=== PATIENT | female | born 1985 | race Caucasian/White ===

== ENCOUNTER 2018-06-01 | Emergency (ER) | payer OTHER ==
[~2018-06-01] VITALS: Ht 170.2 cm; Wt 102.2 kg
[~2018-06-01] MED LIST: AUGMENTIN875 MG PO; BCP; BUSPAR10 MG PO; CIPRO500 MG PO; CLEOCIN300 MG PO; DEPRESSION MED; ENDOCET 5-3251 EACH PO; FLEXERIL5 MG PO; GRALISE600 MG PO; IBUPROFEN800 MG PO; IRON325 M1 PO; KEFLEX500 MG PO; LEXAPRO10 MG PO; LIDOCAINE20 MG/1 M5 PO; MEGESTROL ACETA20 MG PO; MOTRIN600 MG PO; MUCINEX DM ER1 EACH PO; MULTIVITAMIN1 EAC1 PO; NAPROSYN500 MG PO; NAPROXEN500 MG PO; NOHOMEMEDS; NORCO 5/3251 TABLET PO; NORCO 7.5/321 TABLET PO; ONE DAILY FOR1 EAC1 PO; OXCARBAZEPINE150 MG PO; PEN-VEE K,VEET500 MG PO; PROZAC20 MG PO; TORADOL10 MG PO; TRAMADOL HCL50 MG PO; TYLENOL WITH C1 EACH PO; ULTRAM50 MG PO; VICODIN 5-3001 EACH PO
[2018-06-01] MEDS ORDERED: MOTRIN800 MG PO (03:26)
[2018-06-01 03:48] VITALS: BP 126/90
== END 2018-06-01 03:48 | disposition home or self-care (01) ==
LOC: EME
DX: S93.402A Sprain of unspecified ligament of left ankle, initial encounter (principal); X50.1XXA Overexertion from prolonged static or awkward postures, initial encounter; F17.200 Nicotine dependence, unspecified, uncomplicated
CPT/HCPCS: 73610